=== PATIENT | female | born 1960 | race Caucasian/White ===

== ENCOUNTER 2016-09-04 20:20 | Emergency (ER) | payer MEDICAID ==
[~2016-09-04 20:20] MED LIST: AVINZA30 MG PO; NOR10T PO; PHENYTOIN100 M1 PO; RES30 PO; VAL10 PO
[2016-09-04 20:41] VITALS: BP 120/89
== END 2016-09-04 21:04 | disposition left against medical advice (07) ==
LOC: ED 20:20
DX: Z53.21 Procedure and treatment not carried out due to patient leaving prior to being seen by health care provider (principal)

== ENCOUNTER 2016-09-05 00:04 | Emergency (ER) | payer MEDICAID ==
[2016-09-05 01:33] VITALS: BP 112/73
== END 2016-09-05 01:33 | disposition home or self-care (01) ==
LOC: ED 00:04
DX: S70.01XA Contusion of right hip, initial encounter (principal); I10 Essential (primary) hypertension; F17.200 Nicotine dependence, unspecified, uncomplicated; Z79.891 Long term (current) use of opiate analgesic; Z79.899 Other long term (current) drug therapy; Z88.0 Allergy status to penicillin; Z88.5 Allergy status to narcotic agent; Z88.6 Allergy status to analgesic agent; Z88.8 Allergy status to other drugs, medicaments and biological substances; X58.XXXA Exposure to other specified factors, initial encounter; Y93.89 Activity, other specified; Y92.89 Other specified places as the place of occurrence of the external cause; Y99.8 Other external cause status